=== PATIENT | female | born 1985 | race American Indian/Alaskan Native ===

== ENCOUNTER 2022-03-22 13:16 | Outpatient (CLI) | payer OTHER ==
--- NOTE | 2022-03-22 17:30 | Vascular Lab Report ---
DUPLEX DOPPLER LOWER EXTREMITY VEINS, LEFT INDICATION / CLINICAL INFORMATION: SWELLING/PAIN. TECHNIQUE: Duplex doppler imaging was performed through the veins of the left lower extremity using v enous compression and other maneuvers. COMPARISON: None available. FINDINGS: LEFT COMMON FEMORAL VEIN: Negative. LEFT FEMORAL VEIN: Negative. LEFT POPLITEAL VEIN: Negative. LEFT CALF VEINS: Negative. ADDITIONAL FINDINGS: None. IMPRESSION: 1. No sonographic evidence for DVT in the left lower extremity. Scribed by: Marlene Joyce RDMS, DERREKT, [place] Scribed: 03/22/2022 2:15 PM I have reviewed the images, agree with this report, and edited this report as needed. Signer Name: Lucas Haynes MD Signed: 03/22/2022 5:26 PM Workstation Name: [id number]
== END 2022-03-22 13:17 | disposition home or self-care (01) ==
LOC: VAS 13:16
PROVIDERS: ATTEND Internal Medicine Hematology & Oncology
DX: C20 Malignant neoplasm of rectum (principal); M79.89 Other specified soft tissue disorders